=== PATIENT | male | born 1980 | race Caucasian/White ===

== ENCOUNTER 2016-11-24 15:50 | Outpatient (CLI) ==
--- NOTE | 2016-11-24 16:22 | DI ---
EXAM: Chest two view, frontal and lateral views. HISTORY: Chest pain. COMPARISON: None available. FINDINGS: The heart size is normal. There is no pulmonary vascular congestion. The lungs are giulia r save for linear subsegmental atelectasis or scarring in the lingula. No pleural effusion or pneum othorax is seen. No acute osseous abnormality identified. IMPRESSION: No acute cardiopulmonary process.
== END 2016-11-24 15:51 | disposition home or self-care (01) ==
LOC: RAD 15:50
PROVIDERS: ATTEND Physician Assistant
DX: R07.9 Chest pain, unspecified (principal)
CPT/HCPCS: 93005; 93010

== ENCOUNTER 2018-08-13 13:44 | Emergency (ER) | payer OTHER ==
[2018-08-13 13:47] VITALS: BP 130/78; TEMP 97; BMI 30.4
--- NOTE | 2018-08-13 14:20 | ED.PDOC ---
General ED Provider: Dr. MARLENE PARKINSON Chief Complaint: Wrist Pain/Injury Stated Complaint: left wrist and hand Time Seen by Physician: 13:45 (seen with alcon at all times ) Mode of Arrival: Walk-In Information Source: Patient Exam Limitations: No limitations Nursing and Triage Documentation Reviewed and Agree: Yes Does patient meet sepsis criteria?: No System Inflammatory Response Syndrome: Not Applicable Sepsis Protocol: For patient's 13 years and over: Temp is 96.8 and below OR 101 and greater Pulse >90 BPM Resp >20/minute Acutely Altered Mental Status Are patient's symptoms suggestive of a new infection, such as: -Pneumonia -Skin, Soft Tissue -Endocarditis -UTI -Bone, Joint Infection -Implantable Device -Acute Abdominal Infection -Wound Infection -Meningitis -Blood Stream Catheter Infection -Unknown Musculoskeletal Complaint Exam - Hand/Wrist Complaint/Exam Location of Pain: Reports: Left, Hand, Wrist Mechanism of Injury: Reports: No known trauma Onset/Duration: 1 day Symptoms Are: Still present Initial Severity: Mild Current Severity: Mild Location: Reports: Discrete Character: Reports: Aching Alleviating: Reports: Rest Aggravating: Reports: Movement Associated Signs and Symptoms: Denies: Swelling, Redness, Bruising, Fever, Weakness, Numbness, Tingling Dominant Hand: Right Related Surgical History: Reports: None Hand/Wrist Findings: Absent: Swelling, Ecchymosis, Abnormal contour, Rotation, Ligamentous instability Tenderness: Present: Radius. Absent: Snuff box Differential Diagnoses: Closed Fracture, Sprain, Strain Review of Systems - Review Of Systems Constitutional: Reports: No symptoms Eyes: Reports: No symptoms Ears, Nose, Mouth, Throat: Reports: No symptoms Respiratory: Reports: No symptoms Cardiac: Reports: No symptoms GI: Reports: No symptoms : Reports: No symptoms Musculoskeletal: Reports: Joint pain (left wrist/hand) Skin: Reports: No symptoms Neurological: Reports: No symptoms Endocrine: Reports: No symptoms Hematologic/Lymphatic: Reports: No symptoms All Other Systems: Reviewed and Negative Past Medical History - Past Medical History Previously Healthy: Yes Endocrine: Reports: None Cardiovascular: Reports: None Respiratory: Reports: None Hematological: Reports: None Gastrointestinal: Reports: None Genitourinary: Reports: None Neuro/Psych: Reports: None Musculoskeletal: Reports: None Cancer: Reports: None - Surgical History General Surgical History: Reports: None - Family History Family History: Reports: None - Social History Smoking Status: Never smoker Hx Substance Use: No Alcohol Screening: Occasionally Physical Exam - Physical Exam Appearance: Well-appearing, No pain distress, Well-nourished Eyes: JAQUELINE, EOMI, Conjunctiva clear ENT: Ears normal, Nose normal, Oropharynx normal Respiratory: Airway patent, Breath sounds clear, Breath sounds equal, Respirations nonlabored Cardiovascular: RRR, Pulses normal, No rub, No murmur GI/: Soft, Nontender, No masses, Bowel sounds normal, No Organomegaly Musculoskeletal: Normal strength, ROM intact, No edema, No calf tenderness Skin: Warm, Dry, Normal color Neurological: Sensation intact, Motor intact, Reflexes intact, Cranial nerves intact, Alert, Oriented Psychiatric: Affect appropriate, Mood appropriate Interpretation - Radiology Interpretation Radiology Interpretation By: ED Physician Radiology Results: Negative Critical Care Note - Critical Care Note Total Time (mins): 0 Course - Course Orders, Labs, Meds: Orders Category Date Time Status HAND, LEFT 3 VIEWS Stat RADS 08/13/18 14:03 Taken WRIST, LEFT 3 VIEWS Stat RADS 08/13/18 14:03 Taken Vital Signs: Temp Pulse Resp BP Pulse Ox 08/13/18 13:44 97.0 F L 78 18 130/78 96 Departure - Departure Time of Disposition: 15:00 Disposition: HOME SELF-CARE Discharge Problem: Pain in wrist, Injury of wrist, Hand pain, left Instructions: Sprain (ED), Wrist Sprain (ED) Condition: Good Pt referred to PMD for follow-up: Yes IPMP verified?: No Additional Instructions: Please call your Family Physician as soon as possible to schedule a follow-up appointment.you work in the [email or web address]. your work enviorment is highly hazardous please be mindfull that pain medication Chama may make you drowsy and slower invoke slower reflex time reflexes. Prescriptions: Hydrocodone/Acetaminophen [Chama 10-325 Tablet] 1 each PO Q8HR #7 tablet Allergies/Adverse Reactions: Allergies No Known Allergies Allergy (Verified 08/13/18 13:47) Home Medications: Ambulatory Orders Hydrocodone/Acetaminophen [Chama 10-325 Tablet] 1 each PO Q8HR #7 tablet
--- NOTE | 2018-08-13 14:22 | DI ---
EXAM: Left hand, three views HISTORY: Injury COMPARISON: None. FINDINGS: The alignment is normal. Joint spaces appear normal. No fracture is identified. IMPRESSION: No fracture or dislocation is identified. Minimal soft tissue swelling/contusion dorsum of the hand and wrist
--- NOTE | 2018-08-13 14:27 | DI ---
EXAM: Left wrist, three views HISTORY: Injury COMPARISON: None. FINDINGS: The alignment is normal. Joint spaces appear normal. There is no displaced fracture. T here is minimal linear decreased density involving lateral aspect of the mid scaphoid seen on PA view . Impression Alignment normal. Minimal linear density seen lateral aspect of mid scaphoid on PA view. This could represent a vascul ar groove, less likely hairline nondisplaced fracture. If there are progressing symptoms, follow-up study in 10 to 14days would be helpful to further assess
== END 2018-08-13 14:49 | disposition home or self-care (01) ==
LOC: ED 13:44
DX: M25.532 Pain in left wrist (principal); M79.642 Pain in left hand; S69.92XA Unspecified injury of left wrist, hand and finger(s), initial encounter
CPT/HCPCS: 99282

== ENCOUNTER 2019-01-26 14:29 | Outpatient (CLI) ==
[2018-12-08 08:31] VITALS: BMI 30.4
--- NOTE | 2019-01-26 16:20 | US ---
EXAM: Thyroid ultrasound HISTORY: Throat fullness COMPARISON: None TECHNIQUE: Thyroid ultrasound was performed FINDINGS: Right thyroid measures 1.6 x 1.5 x 4.8 cm. Left thyroid measures 1.5 x 1.5 x 3.8 cm. Thy roid isthmus measures 0.3 cm. Thyroid normal in echogenicity and vascularity. Hypoechoic isoechoic nodule or pseudo nodule (secondary to a region of heterogeneous thyroid) in the left mid thyroid tariq uring 0.4 x 0.7 x 0.5 cm IMPRESSION: Sub centimeter left thyroid nodule versus pseudo nodule. Recommend sonographic follow-u p 12 months.
--- NOTE | 2019-01-26 17:31 | CT ---
EXAM: CT neck with contrast HISTORY: There are fullness COMPARISON: None TECHNIQUE: CT neck performed with intravenous contrast. Coronal and sagittal reformatted images obt ained. FINDINGS: Mastoid air cells clear. Polypoid mucosal thickening right maxillary sinus measuring 1.9 cm with small areas of polypoid mucosal thickening left maxillary sinus. These may represent mucus r etention cysts. Lung apices clear. Thyroid unremarkable. Parotid glands unremarkable. Submandibul ar glands unremarkable. No lymphadenopathy identified in the neck. Evaluation of the aerodigestive tract demonstrates no exophytic mass lesion or area of focal mass effect. Tonsils and adenoids not e nlarged. Epiglottis appears normal. Prevertebral soft tissues appear normal. IMPRESSION: 1. No acute abnormality identified in the neck. 2. Sinus mucosal changes as described.
== END 2019-01-26 14:30 | disposition home or self-care (01) ==
LOC: RAD 14:29
PROVIDERS: ATTEND Physician Assistant
DX: R68.89 Other general symptoms and signs (principal); R53.83 Other fatigue
CPT/HCPCS: 36415; 80053; 82306; 82607; 84403; 84439; 84443; 87070

== ENCOUNTER 2019-03-04 07:55 | Outpatient (CLI) ==
[2018-12-08 08:31] VITALS: BMI 30.4
== END 2019-03-04 07:56 | disposition home or self-care (01) ==
LOC: LAB 07:55
PROVIDERS: ATTEND Family Medicine
DX: E04.1 Nontoxic single thyroid nodule (principal); R53.83 Other fatigue
CPT/HCPCS: 36415; 80061; 84403; 85025